=== PATIENT | male | born 1975 | race Caucasian/White ===

== ENCOUNTER 2016-08-16 06:44 | Emergency (ER) | payer SELFPAY ==
[~2016-08-16] VITALS: Ht 175.3 cm; Wt 70.0 kg
[~2016-08-16 06:44] MED LIST: CLINDAMYCIN HC150 MG PO; CLINDAMYCIN HC300 MG PO; FLEXERIL10 MG PO; HYDROCODON-ACE1 EAC7 PO; LIDODERM 5% P1 PATCH TD; LISINOPRIL20 MG PO; MEDROL DOSEPAK4 MG PO; MOTRIN600 MG PO; NAPROXEN500 MG PO; NORCO 5/3251 TABLET PO; PERIDEX1 ML MM; TRAMADOL HCL50 MG PO; ZOFRAN4 MG PO
[2016-08-16] MEDS ORDERED: FLEXERIL10 MG PO (08:09)
[2016-08-16] MEDS ORDERED: NORCO 5/3251 TABLET PO (08:09)
[2016-08-16 08:49] VITALS: BP 157/96
== END 2016-08-16 08:50 | disposition home or self-care (01) ==
LOC: EME 06:44
DX: M54.16 Radiculopathy, lumbar region (principal); Z88.0 Allergy status to penicillin; Z88.8 Allergy status to other drugs, medicaments and biological substances; F17.200 Nicotine dependence, unspecified, uncomplicated
CPT/HCPCS: 99281; 99283

== ENCOUNTER 2016-08-30 07:17 | Emergency (ER) | payer SELFPAY ==
[~2016-08-30] VITALS: Ht 175.3 cm; Wt 67.8 kg
[2016-08-30 08:09] LABS: HEMATOCRIT 47.4 % (38.0-50.0); MCH 30.2 PG (29.0-34.0); MCHC 34.4 G/DL (30.0-36.0); MCV 87.8 FL (86-99); MEAN PLAT.VOLUME 9.5 uM^3 (9.0-12.4); PLATELET COUNT 293 K/uL (156-360); RBC DIS.WIDTH-CV 12.7 % (11.8-14.6); RBC DIS.WIDTH-SD 40.9 % (39-53); WHITE BLOOD COUNT 7.8 K/uL (4.1-10.2)
[2016-08-30 08:18] LABS: CHLORIDE 101 mEq/L (99-109); SODIUM 137 mEq/L (136-147)
[2016-08-30 08:20] LABS: GLUCOSE 121 mg/dL (70-99)
[2016-08-30 08:21] LABS: ANION GAP 9 MEQ/L (2-14)
[2016-08-30 08:22] LABS: TOTAL BILIRUBIN 0.4 mg/dL (0.0-1.0)
[2016-08-30 08:24] LABS: ALKALINE PHOSPHATASE 73 IU/L (3-129); GFR ESTIMATE (CALCULATED) > 59 mL/min/
[2016-08-30 08:25] LABS: UREA NITROGEN (BUN) 9 mg/dL (9-23)
[2016-08-30 08:54] LABS: C-REACTIVE PROTEIN 2.6 MG/L (0-10)
[2016-08-30 09:03] LABS: ADD MIUA? NO; BILIRUBIN NEGATIVE; BLOOD NEGATIVE; COLOR STRAW ((YELLOW)); GLUCOSE (STRIP) NEGATIVE; KETONES NEGATIVE; LEUKOCYTES NEGATIVE; NITRITE NEGATIVE; PROTEIN (STRIP) NEGATIVE; SPECIFIC GRAVITY 1.005 (1.000-1.030); UROBILINOGEN 0.2 MG/DL (0.2-1.0)
[2016-08-30] MEDS ORDERED: MOTRIN800 MG PO (09:55)
[2016-08-30] MEDS ORDERED: FLEXERIL10 MG PO (09:55)
[2016-08-30 10:16] VITALS: BP 117/84
== END 2016-08-30 10:16 | disposition home or self-care (01) ==
LOC: EME 07:17
PROVIDERS: Nurse Practitioner Family
DX: M51.36 Other intervertebral disc degeneration, lumbar region (principal); M54.30 Sciatica, unspecified side
CPT/HCPCS: 72100; 80053; 81003; 85027; 86140; 99281; 99284; J1885; J3360; J7030

== ENCOUNTER 2017-03-10 08:38 | Emergency (ER) | payer SELFPAY ==
[~2017-03-10] VITALS: Ht 175.3 cm; Wt 69.1 kg
[~2017-03-10 08:38] MED LIST changes: +MOTRIN800 MG PO
[2017-03-10 10:32] LABS: HEMATOCRIT 42.1 % (38.0-50.0); HEMOGLOBIN 14.4 G/DL (12.5-16.6); MCH 30.6 PG (29.0-34.0); MCHC 34.2 G/DL (30.0-36.0); MCV 89.4 FL (86-99); PLATELET COUNT 268 K/uL (156-360); RBC DIS.WIDTH-CV 12.7 % (11.8-14.6); RBC DIS.WIDTH-SD 41.7 % (39-53); RED BLOOD COUNT 4.71 M/uL (4.00-5.50); WHITE BLOOD COUNT 6.7 K/uL (4.1-10.2)
[2017-03-10 10:39] LABS: ALBUMIN 4.2 g/dL (3.2-4.8)
[2017-03-10 10:40] LABS: CHLORIDE 104 mEq/L (99-109); POTASSIUM 4.1 mEq/L (3.7-5.4); SODIUM 139 mEq/L (136-147)
[2017-03-10 10:42] LABS: GLUCOSE 110 mg/dL (70-99)
[2017-03-10 10:44] LABS: TOTAL BILIRUBIN 0.3 mg/dL (0.0-1.0)
[2017-03-10 10:45] LABS: ALKALINE PHOSPHATASE 72 IU/L (3-129)
[2017-03-10 10:46] LABS: GFR ESTIMATE (CALCULATED) > 59 mL/min/ (58.99-99999)
[2017-03-10 10:47] LABS: AST (GOT) 14 IU/L (2-34); UREA NITROGEN (BUN) 10 mg/dL (9-23)
[2017-03-10 10:49] LABS: ALT (GPT) 15 IU/L (3-49)
[2017-03-10 10:52] LABS: TROP-I INTERPRETATION NEGATIVE; TROPONIN-I < 0.01 ng/mL (0.0-0.30)
[2017-03-10] MEDS ORDERED: PERCOCET 10/1 TABLET PO (12:46)
[2017-03-10] MEDS ORDERED: FLEXERIL10 MG PO (12:46)
[2017-03-10] MEDS ORDERED: MOTRIN600 MG PO (12:46)
[2017-03-10 12:57] VITALS: BP 136/98
== END 2017-03-10 13:07 | disposition home or self-care (01) ==
LOC: EME 08:38
PROVIDERS: Emergency Medicine
DX: M50.10 Cervical disc disorder with radiculopathy, unspecified cervical region (principal); M47.22 Other spondylosis with radiculopathy, cervical region; R07.9 Chest pain, unspecified; Z88.0 Allergy status to penicillin
CPT/HCPCS: 71020; 72040; 80053; 84484; 85027; 93005; 99281; 99284

== ENCOUNTER 2017-06-02 15:35 | Emergency (ER) | payer SELFPAY ==
[~2017-06-02] VITALS: Ht 175.3 cm; Wt 66.4 kg
[~2017-06-02 15:35] MED LIST changes: +PERCOCET 10/1 TABLET PO
[2017-06-02] MEDS ORDERED: LIDODERM 5% P1 PATCH TD (21:04)
[2017-06-02] MEDS ORDERED: SKELAXIN800 MG PO (21:04)
[2017-06-02] MEDS ORDERED: MOTRIN800 MG PO (21:04)
[2017-06-02 21:13] VITALS: BP 133/89
== END 2017-06-02 21:14 | disposition home or self-care (01) ==
LOC: EME 15:35
DX: S70.02XA Contusion of left hip, initial encounter (principal); S16.1XXA Strain of muscle, fascia and tendon at neck level, initial encounter; W00.0XXA Fall on same level due to ice and snow, initial encounter; M50.30 Other cervical disc degeneration, unspecified cervical region; F17.200 Nicotine dependence, unspecified, uncomplicated; Z88.0 Allergy status to penicillin; Z88.8 Allergy status to other drugs, medicaments and biological substances
CPT/HCPCS: 72040; 73502; 99281; 99284; J1885